=== PATIENT | male | born 1955 | race Caucasian/White ===

== ENCOUNTER 2019-07-15 08:58 | Inpatient (IN) | payer BC ==
[2019-07-09 14:05] LABS: BASOPHILS % (AUTO) 0.5 % (0-1); EOSINOPHILS # (AUTO) 0.1 X10'3 (0-0.9); EOSINOPHILS % (AUTO) 0.8 % (0-6); LYMPHOCYTES # (AUTO) 1.5 X10'3 (1.1-4.8); LYMPHOCYTES % (AUTO) 19.4 % (21-51); MEAN CORPUSCULAR HEMOGLOBIN 35.8 PG (27.0-31.0); MEAN CORPUSCULAR HGB CONC 35.4 g/dL (33.0-36.5); MEAN CORPUSCULAR VOLUME 101.1 FL (78-98); MEAN PLATELET VOLUME 9.3 FL (7.4-10.4); MONOCYTES # (AUTO) 0.9 X10'3 (0-0.9); MONOCYTES % (AUTO) 11.4 % (2-12); NEUTROPHILS # (AUTO) 5.2 X10'3 (1.8-7.7); NEUTROPHILS % (AUTO) 67.9 % (42-75); PRE OP HEMATOCRIT 45.5 % (42.0-52.0); PRE OP HEMOGLOBIN 16.1 g/dL (14.0-17.9); PRE OP PLATELET COUNT 190 X10'3 (140-440); RED CELL DISTRIBUTION WIDTH 12.5 % (11.5-14.5)
[2019-07-09 14:26] LABS: ALBUMIN/GLOBULIN RATIO 1.1 (1.1-1.5); ALKALINE PHOSPHATASE 77 IU/L (46-116); BLOOD UREA NITROGEN 22 MG/DL (7-18); BUN/CREATININE RATIO 25.3 (5.4-32.0); CALCIUM 8.8 MG/DL (8.5-10.1); CHLORIDE 106 MMOL/L (99-107); CREATININE 0.87 MG/DL (0.60-1.10); PRE OP ALT 45 U/L (30-65); PRE OP ANION GAP 3 (8-16); PRE OP AST 17 U/L (10-37); PRE OP BILIRUB, TOTAL 0.3 MG/DL (0.0-1.0); PRE OP GLUCOSE 120 MG/DL (70-104); PRE OP SODIUM 139 MMOL/L (135-145); TOTAL CARBON DIOXIDE 29.6 MMOL/L (24-32); TOTAL PROTEIN 7.6 G/DL (6.4-8.2); eGFR 89 ML/MIN
[2019-07-15] VITALS (16 sets, daily range): BP systolic 104–157; BP diastolic 51–80
[~2019-07-15] VITALS: Ht 180.3 cm; Wt 119.4 kg
[~2019-07-15 08:58] MED LIST: ASPI81TA30 PO; CETI-194 PO; IBUP-1985 PO; LEVO100T PO; OLME20TA14 PO; cefazolin/dext.iso 2gm/100ml 100 ML IV ONE; famotidine 10mg tablet PO ONE; ringers solution, lacted 1,000 ML IV SCH; tranexamic acid inj. 1,000 MG in normal saline 100 ML IV ONE; vancomycin inj 1,500 MG in normal saline 300ml IV soln IV ONE
[2019-07-15] MEDS ORDERED: ceFAZolin 1000mg inj ONE (12:42)
[2019-07-15] MEDS ORDERED: epiNEPHrine 1 mg/ml inj ONE (12:42)
[2019-07-15] MEDS ORDERED: ketorolac trometh. 30mg/ml inj. ONE (12:42)
[2019-07-15] MEDS ORDERED: ROPIVAcaine 0.5% (5mg/ml) 30ml vial ONE ×2 (12:42→15:38)
[2019-07-15] MEDS ORDERED: vancomycin 1,000mg inj ONE (12:42)
[2019-07-15] MEDS ORDERED: tetracaine 1% (10mg/ml) pres. free inj. ONE (13:20)
[2019-07-15] MEDS ORDERED: MIDAZolam 5mg/5ml vial ONE (13:22)
[2019-07-15] MEDS ORDERED: fentaNYL/PF 50MCG/1 ML 2ML syringe ONE (13:22)
[2019-07-15] MEDS ORDERED: Thrombin (Bovine) 5,000 unit vial TP ONE (14:10)
[2019-07-15] MEDS ORDERED: calcium chloride 100 MG/1 ML inj IV ONE (14:11)
[2019-07-15] MEDS ORDERED: propofol inj 20 ML IV ONE (14:24)
[2019-07-15] MEDS ORDERED: ringers solution, lacted 1,000 ML IV SCH (14:42)
[2019-07-15] MEDS ORDERED: meperidine/PF 25mg/ml syringe IV PRN ×3 (14:45)
[2019-07-15] MEDS ORDERED: ondansetron/PF 4mg/2ml inj IV PRN ×2 (14:45→15:35)
[2019-07-15] MEDS ORDERED: ROPIVAcaine 0.2% (10 MG/5 ML) BOLUS INJECTION ADDCANAL PRN (14:45)
[2019-07-15] MEDS ORDERED: morphine 4 MG/ML inj SYRINge IV PRN ×2 (14:45)
[2019-07-15] MEDS ORDERED: proCHLORperazine 10 MG/2 ml inj IV PRN (14:45)
[2019-07-15] MEDS ORDERED: magnesium hydroxide 30ml (MOM) UD suspension PO PRN (15:35)
[2019-07-15] MEDS ORDERED: oxyCODONE IR 5mg (immed. release) tablet PO PRN ×2 (15:35)
[2019-07-15] MEDS ORDERED: bisacodyl 10mg suppository rectal RC PRN (15:35)
[2019-07-15] MEDS ORDERED: diphenhydrAMINE 25mg capsule PO PRN ×2 (15:35)
[2019-07-15] MEDS ORDERED: HYDROmorphone inj. 0.5 MG/0.5 ML DISP.SYRIN IV PRN (15:35)
[2019-07-15] MEDS ORDERED: acetaminophen 325mg tablet PO PRN (15:35)
[2019-07-15] MEDS ORDERED: HYDROmorphone 1 mg/ml syringe IV PRN (15:35)
--- NOTE | 2019-07-15 16:12 | NUR ---
Received from OR via aicha, accompanied by Anesthesiologist Yang and report given by Anesthesiolgist. Pt alert and responsive, requires no oxygen sats 98% on room air, all other VS WNL, 18G to left hand IVF LR at 100cc/hr. Left knee leg wrap cold pack and monster dressing present, will connect ON-Q pain medicine. Palpable pulses bilaterally to dorsalis pedis. Pt states he is in no pain.
[2019-07-15] MEDS: ROPIVAcaine 0.2%/PF PUMP/bolus 550 ML ADDCANAL SCH ×2 (16:42→20:42)
--- NOTE | 2019-07-15 17:22 | NUR ---
Report called to receiving nurse. Transferred via ortho bed. Belongings taken back up to room with patient. Special Issues communicated to receiving nurse Kassandra BARAJAS. Vazquez catheter still draining yellow urine, ON-Q present to left knee with monster dressing. BLL, call light within reach. RN at bedside. will be brought with patient. Pt still states no pain and has feeling from knee up.
--- NOTE | 2019-07-15 17:25 | NUR ---
ASSUMED CARE, RECEIVED REPORT FROM ASH BARAJAS. PATIENT REPORTS 0/10 PAIN, AT BEDSIDE, POST OP VS STARTED. WILL CONTINUE TO MONITOR.
[2019-07-15] MEDS: ceFAZolin 1GM/D5W- ADD-VANTAGE 50 ML IV SCH ×2 (17:37→23:31)
--- NOTE | 2019-07-15 18:00 | NUR ---
Problems reprioritized. Patient report given, questions answered & plan of care reviewed with LEIGHTON BARAJAS.
--- NOTE | 2019-07-15 18:20 | NUR ---
Received report from JENN Hickman. Assumed patient care.
[2019-07-15] MEDS ORDERED: ibuprofen 200mg tablet PO PRN (18:30)
[2019-07-15] MEDS ORDERED: tranexamic acid inj. 1,000 MG in normal saline 100ml IV soln 100 ML IV ONE (18:35)
[2019-07-15] MEDS ORDERED: VANCOMYCIN 1gm/H2O 200ml PB 200 ML IV SCH (20:00)
[2019-07-15] MEDS: acetaminophen 325mg tablet PO SCH (20:45)
[2019-07-15] MEDS: gabapentin 300mg capsule PO SCH (20:45)
[2019-07-15] MEDS: potassium cl 20mEq in 1/2 NS 1,000 ML IV SCH ×2 (20:53→23:33)
[2019-07-15] MEDS ORDERED: sennosides 8.6mg tablet PO SCH (21:00)
[2019-07-16 02:00] VITALS: BP 133/83
[2019-07-16] MEDS: acetaminophen 325mg tablet PO SCH ×2 (02:05→07:20)
--- NOTE | 2019-07-16 06:09 | NUR ---
Patient report given questions and and plan of care reviewed with JENN Epstein.
[2019-07-16 06:10] VITALS: BP 130/70
--- NOTE | 2019-07-16 06:10 | NUR ---
Patient in room ORTHO 4012. I have received report from Dana BARAJAS and had the opportunity to ask questions and assume patient care.
[2019-07-16] MEDS: potassium cl 20mEq in 1/2 NS 1,000 ML IV SCH (06:16)
[2019-07-16] MEDS: gabapentin 300mg capsule PO SCH (07:20)
[2019-07-16] MEDS ORDERED: losartan 50mg tablet PO SCH (08:00)
[2019-07-16] MEDS ORDERED: aspirin 81mg tablet.DR PO SCH (08:00)
[2019-07-16] MEDS ORDERED: cetirizine 10mg tablet PO SCH (08:00)
[2019-07-16] MEDS ORDERED: ceFAZolin 1GM/D5W- ADD-VANTAGE 50 ML IV ONE (08:00)
[2019-07-16] MEDS ORDERED: levoTHYROXINE 100mcg tablet PO SCH (08:00)
[2019-07-16] MEDS ORDERED: aspirin 325mg tablet PO SCH (08:30)
[2019-07-16 10:00] VITALS: BP 117/56
--- NOTE | 2019-07-16 12:10 | NUR ---
Patient discharged and taught all discharge instructions for his uni/knee regarding: on-q, showering, dressing changes, and follow up ect. Patient discharged with his and taken outside to her car in wheel chair. He had all of his items.
--- NOTE | 2019-07-16 12:25 | NUR ---
Joint Replacement Consult: Pt pending d/c this AM and seen by JUANIS for written/verbal high protein ed w/ RD contact information provided. Pt declines nutrition questions/concerns at this time. RD encouraged pt to contact dietitian's office if further questions. Addendum: 07/16/19 at [address] Amended: Links added.
[2019-07-16] MEDS ORDERED: celeCOXIB 100mg capsule PO SCH (20:00)
[2019-07-17] MEDS ORDERED: acetaminophen 325mg tablet PO PRN (15:35)
== END 2019-07-16 12:10 | disposition home or self-care (01) | DRG 470 ==
LOC: PAS IN 08:58 → EDSTATUS 16:45 → ORTHO 4S 18:17
PROVIDERS: ADMIT Orthopaedic Surgery; ATTEND Orthopaedic Surgery
PROC: 3E0T3BZ Introduction of Anesthetic Agent into Peripheral Nerves and Plexi, Percutaneous Approach (ICD-10-PCS; 2019-07-15)
PROC: 0SRD0L9 Replacement of Left Knee Joint with Medial Unicondylar Synthetic Substitute, Cemented, Open Approach (ICD-10-PCS; principal; 2019-07-15 13:36)
DX: M17.12 Unilateral primary osteoarthritis, left knee (principal); E03.9 Hypothyroidism, unspecified; I10 Essential (primary) hypertension; E66.9 Obesity, unspecified; Z68.36 Body mass index [BMI] 36.0-36.9, adult; Z79.899 Other long term (current) drug therapy; Z79.82 Long term (current) use of aspirin
CPT/HCPCS: Z7506; Z7508; 36415; 80053; 82948; 84443; 85025; 87081; 97110; 97116; 97162; 97530; A4215; A7000; C1713; C1758; C1776; G0378; J0171; J0690; J1885; J2250; J2704; J2795; J3010; J3370; J3480; J7050; J7120